=== PATIENT | female | born 1950 | race Caucasian/White ===

== ENCOUNTER 2022-11-03 07:00 | Outpatient (CLI) | payer MEDICARE, OTHER | END 2022-11-03 23:59 | disposition home or self-care (01) | LOC: LAB.S 07:00 | PROVIDERS: ATTEND Physician Assistant | DX: R30.0 Dysuria (principal) | CPT/HCPCS: 87086 ==

== ENCOUNTER 2022-12-14 06:57 | Outpatient (CLI) | payer MEDICARE, OTHER ==
--- NOTE | 2022-12-14 10:08 | Ultrasound Report ---
PROCEDURE: Carotid Doppler Complete INDICATIONS: CAROTID BRUIT TECHNIQUE: Color and pulse Doppler interrogation was performed of both carotid systems, with image documentation and velocity measurements. COMPARISON: None. FINDINGS: Right side: Brachial blood pressure: 139/72 mm Hg. Common carotid artery peak systolic velocity: 96 cm/sec. Internal carotid artery peak systolic velocity: 91 cm/sec. Internal carotid artery end diastolic velocity: 31 cm/sec. External carotid artery peak systolic velocity: 78 cm/sec. ICA/CCA peak systolic ratio: 1.0. Richey scale imaging description: Mild calcified plaque. Percent internal carotid artery stenosis: Less than 50% stenosis. Vertebral artery: Flow direction is antegrade. Left side: Brachial blood pressure: 123/70 mm Hg. Common carotid artery peak systolic velocity: 83 cm/sec. Internal carotid artery peak systolic velocity: 105 cm/sec. Internal carotid artery end diastolic velocity: 41 cm/sec. External carotid artery peak systolic velocity: 96 cm/sec. ICA/CCA peak systolic ratio: 1.3. Richey scale imaging description: Moderate calcified plaque. Percent internal carotid artery stenosis: Less than 50% stenosis. Vertebral artery: Flow direction is antegrade. IMPRESSION: 1. Right ICA: Less than 50% stenosis. 2. Left ICA: Less than 50% stenosis. 3. Antegrade flow in the bilateral vertebral arteries. The estimate of stenosis included in the report of the imaging study was calculated using the NASCET method Reviewed by: Mark Pierson MD on 12/14/2022 10:07 AM [facility] Approved by: Mark Pierson MD on 12/14/2022 10:07 AM [facility] Station ID: [id number]
== END 2022-12-14 06:58 | disposition home or self-care (01) ==
LOC: DI 06:57
PROVIDERS: ATTEND Nurse Practitioner Family
DX: R09.89 Other specified symptoms and signs involving the circulatory and respiratory systems (principal)
CPT/HCPCS: 93880

== ENCOUNTER 2023-08-29 00:36 | Outpatient (CLI) | payer MEDICARE, OTHER | END 2023-08-29 00:37 | disposition critical access hospital (66) | LOC: EMS 00:36 | DX: R10.31 Right lower quadrant pain (principal) | CPT/HCPCS: A0425; A0427 ==

== ENCOUNTER 2023-08-29 01:13 | Emergency (ER) | payer MEDICARE, OTHER ==
--- NOTE | 2023-08-29 01:34 | ED Physician Documentation ---
PD HPI ABD PAIN - Stated complaint Stated Complaint: R FLANK PX - Chief complaint Chief Complaint: Abd Pain - History obtained from History obtained from: Patient - Additional information Additional information: HPI from patient. Patient complains of sudden onset of right flank pain with nausea but no vomiting, onset approximately 4 PM this evening while at home making dinner. The pain waxes and wanes without apparent exacerbating/ameliorating factors. However, she did have resolution of the pain after she was given IV morphine sulfate by the EMS en route to the ED. Patient says her symptoms are very similar to previous episodes of renal colic. She has not had renal colic in approximately 4 years. Denies fever, denies dysuria. Pain does not radiate. Review of Systems Constitutional: denies: Fever, Chills, Sweats Cardiac: reports: Reviewed and negative Respiratory: reports: Reviewed and negative GI: reports: Nausea. denies: Abdominal Pain (right flank, but not abdominal pain per se), Abdominal Swelling, Vomiting, Constipation, Diarrhea : denies: Dysuria, Hematuria PD PAST MEDICAL HISTORY - Past Medical History Past Medical History: Yes Cardiovascular: Hypertension, High cholesterol - Past Surgical History Past Surgical History: Yes - Present Medications Home Medications: Ambulatory Orders Medication Instructions Recorded Confirmed Ondansetron Odt [Zofran Odt] 4 mg TL Q6H PRN #14 tablet 08/29/23 oxyCODONE [Roxicodone] 5 - 10 mg PO Q6H PRN #14 tablet 08/29/23 - Allergies Allergies/Adverse Reactions: Allergies Allergy/AdvReac Type Severity Reaction Status Date / Time No Known Drug Allergies Allergy Verified 08/29/23 01:21 - Social History Does the pt smoke?: No Smoking Status: Never smoker Does the pt drink ETOH?: No Does the pt have substance abuse?: No - Immunizations Immunizations are current?: Yes - POLST Patient has POLST: No PD ED PE NORMAL - Vitals Vital signs reviewed: Yes - General General: Alert and oriented X 3, No acute distress, Well developed/nourished - Cardiac Cardiac: RRR, No murmur - Respiratory Respiratory: No respiratory distress, Clear bilaterally - Abdomen Abdomen: Soft, Non tender - Back Back: No CVA TTP - Derm Derm: No rash Results - Vitals Vitals: Oxygen O2 Source Room air - Labs Labs: Microbiology 08/29/23 02:03 Urine Culture - Final Urine,Clean Catch 10-50,000 COLONIES/ML Polymicrobial growth including potential pathogens. This is suggestive of skin or other contamination. Laboratory Tests 08/29/23 08/29/23 08/29/23 02:03 02:35 02:35 WBC 7.2 RBC 4.14 L Hgb 11.7 L Hct 37.1 MCV 89.6 MCH 28.3 MCHC 31.5 L RDW 13.5 Plt Count 204 MPV 10.3 Neut # (Auto) 3.8 Lymph # (Auto) 2.4 [place] # (Auto) 0.5 Eos # (Auto) 0.4 Baso # (Auto) 0.1 Absolute Nucleated RBC 0.00 Nucleated RBC % 0.0 Sodium 142 Potassium 4.1 Chloride 109 Carbon Dioxide 27 Anion Gap 6.0 BUN 14 Creatinine 0.7 Estimated GFR (MDRD) 82 L Glucose 97 Calcium 8.7 Total Bilirubin 0.5 AST 16 ALT 14 Alkaline Phosphatase 46 Total Protein 6.2 L Albumin 4.3 Globulin 1.9 L Albumin/Globulin Ratio 2.3 H Lipase 321 H Urine Color COLORLESS Urine Clarity CLEAR Urine pH 6.0 Ur Specific [place] <=1.005 Urine Protein NEGATIVE Urine Glucose (UA) NEGATIVE Urine Ketones NEGATIVE Urine Occult Blood NEGATIVE Urine Nitrite NEGATIVE Urine Bilirubin NEGATIVE Urine Urobilinogen 0.2 (NORMAL) Ur Leukocyte Esterase SMALL H Urine RBC 0-5 Urine WBC 6-10 H Ur Squamous Epith Cells NONE SEEN Urine Bacteria Rare Ur Microscopic Review INDICATED Urine Culture Comments INDICATED - Rads (name of study) CT A/P Relevant Findings:: Prelim report reviewed, EMP independent interpretation of test (I reviewed these images and my interpretation is bilateral renal calculi but no evidence of obstructing ureteral calculi. No hydro ureter nor hydronephrosis on either side. Large gallstone noted without gallbladder dilatation.), See rad report PD Medical Decision Making - ED course Complexity details: reviewed results, re-evaluated patient, considered differential, d/w patient ED course: Patient presents with right flank pain that she says is quite similar to previous episodes of renal colic that she has had in the past. However, there is no evidence of obstructing renal calculus on either side. Incidental note is made of multiple intrarenal stones bilaterally, more so on the left. CT does show a solitary though a large gallstone which is a potential etiology of her right upper quadrant pain. Her LFTs are unremarkable. An elevated lipase is noted (321). Patient is in NAD on initial evaluation as well as on reevaluation prior to discharge. Results of fab's tests are discussed with the patient. She declines analgesics but agrees with take-home percocet (and ondansetron) to have on-hand should symptoms reoccur; I am also electronically submitted prescriptions for these medications to [facility] in [place]. Return precautions are reviewed. I advised her to follow-up with a general surgeon to discuss the large gallstone and options for treatment. I suspect fab's symptoms were due to biliary colic. Pancreatitis seems unlikely given the location (right flankpain without anterior/midline pain) and the resolution of symptoms with small dose of morphine which has most certainly worn off by the time of reevaluation prior to d/c. Renal colic seems unlikely given no ureteral calculi nor hydro/ureteronephrosis. I am prescribing a short course of short-acting opioid pain medication for this patient. 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 I have discussed that the opioids are for short term therapy only, and will not be refilled from the ED. Departure - Departure Disposition: 01 Home, Self Care Clinical Impression: Flank pain Condition: Good Instructions: ED Flank Pain Uncertain Cause, ED Gallstone W Biliary Colic Follow-Up: PARVIZ MARQUEZ [Primary Care Provider] - Prescriptions: oxyCODONE [Roxicodone] 5 - 10 mg PO Q6H PRN #14 tablet PRN Reason: Pain >8 Ondansetron Odt [Zofran Odt] 4 mg TL Q6H PRN #14 tablet PRN Reason: Nausea / Vomiting Comments: Although the CT scan shows stones lodged within both the right and left kidney, none of them are in position to cause nor explain any of the pain you had tonight. Kidney stones do not cause symptoms until and unless they become lodged in the ureter (the conduit from the kidney to the bladder), and at this time there is no evidence of any stone stuck in either ureter. There is a solitary but very large gallstone in your gallbladder; as we discussed, I suspect this might have been the cause of your symptoms tonight. Your blood tests were mostly unremarkable and reassuring. Your lipase (pancreatic enzyme) was elevated; this is sometimes an indication of pancreatic inflammation (pancreatitis), but the radiologist specified in their reading of the CT scan that the pancreas is normal in appearance (no evidence of inflammation). Thus, I suspect this mildly elevated pancreatic enzyme test is incidental and not a concerning finding. Nonetheless, mention it to your primary care provider when you follow-up; they might recommend having this test repeated to make sure it is not staying elevated nor getting higher. I have electronically submitted prescriptions for ondansetron (anti-nausea and) and oxycodone (opiate/narcotic pain medication) to the [facility] in [place]. I am prescribing a short course of narcotic pain medication for you. These are potentially dangerous and addictive medications that should be used carefully. These medications may constipate you. Take an [id number] stool softener (docusate) twice daily with plenty of water while taking these medications. If you go 24 hours without a bowel movement, take [id number]-[id number] miralax, per package instructions. Do not drink or drive while taking these medications. If you received narcotic or sedating medications while in the emergency department, do not drive for 24 hours. Store this medication in a safe, secure place and out of reach of children. It is a violation of federal law to give or sell this medication to another person or to use in a manner other than prescribed. The ED will not refill narcotic prescriptions, including prescriptions lost or stolen. To dispose of unwanted medications: 1. [facility] [address] in [place] has a medication drop box. They accept prescription medications (in pill form) Sunday through Sunday 9:00 a.m. to 5:00 p.m. 2. [facility] [employer] accepts prescription medications (in pill form only) for disposal year round. Call for more information. 3. Contact the [facility] for the next [facility] sponsored prescription drug collection event. , [phone], or [phone]; Forms: PCP List Discharge Date/Time: 08/29/23 06:54
[2023-08-29 02:42] LABS: BILIRUBIN,URINE NEGATIVE (NEGATIVE); GLUCOSE, URINE (UA) NEGATIVE (NEGATIVE); KETONES,URINE (UA) NEGATIVE (NEGATIVE); LEUKOCYTE ESTERASE, URINE SMALL (NEGATIVE); NITRITE,URINE NEGATIVE (NEGATIVE); OCCULT BLOOD,URINE NEGATIVE (NEGATIVE); PROTEIN,URINE NEGATIVE (NEGATIVE); UROBILINOGEN,URINE 0.2 (NORMAL) E.U./dL (NORMAL)
[2023-08-29 02:48] LABS: BASOPHILS # (AUTO) 0.1 10^3/uL (0.0-0.1); BASOPHILS % (AUTO) 0.8 %; EOSINOPHILS # (AUTO) 0.4 10^3/uL (0.0-0.7); EOSINOPHILS % (AUTO) 5.5 %; HCT - HEMATOCRIT 37.1 % (37.0-47.0); HGB - HEMOGLOBIN 11.7 g/dL (12.0-16.0); LYMPHOCYTES # (AUTO) 2.4 10^3/uL (1.5-3.5); LYMPHOCYTES % (AUTO) 33.7 %; MEAN CORPUSCULAR HEMOGLOBIN 28.3 pg (27.0-31.0); MEAN CORPUSCULAR HGB CONC 31.5 g/dL (32.0-36.0); MEAN CORPUSCULAR VOLUME 89.6 fL (81.0-99.0); MEAN PLATELET VOLUME 10.3 fL (7.9-10.8); MONOCYTES # (AUTO) 0.5 10^3/uL (0.0-1.0); MONOCYTES % (AUTO) 6.8 %; NEUTROPHILS # (AUTO) 3.8 10^3/uL (1.5-6.6); NEUTROPHILS % (AUTO) 52.9 %; PLT - PLATELET COUNT 204 10^3/uL (130-450); RED BLOOD COUNT 4.14 10^6/uL (4.20-5.40); RED CELL DISTRIBUTION WIDTH 13.5 % (12.0-15.0); WHITE BLOOD COUNT 7.2 x10^3/uL (4.8-10.8)
[2023-08-29 03:01] LABS: BACTERIA,URINE Rare /HPF (None Seen); CLARITY,URINE CLEAR (CLEAR); RBC,URINE 0-5 /HPF (0-5); SQUAMOUS EPITHELIAL CELL,UR NONE SEEN (<= Few)
[2023-08-29 03:19] LABS: ALBUMIN 4.3 g/dL (3.2-5.5); ALBUMIN/GLOBULIN RATIO 2.3 (1.0-2.2); BILIRUBIN,TOTAL 0.5 mg/dL (0.2-1.0); CALCIUM 8.7 mg/dL (8.5-10.3); CREATININE 0.7 mg/dL (0.6-1.3); POTASSIUM 4.1 mmol/L (3.5-4.5); TOTAL PROTEIN 6.2 g/dL (6.4-8.9)
[2023-08-29] MEDS ORDERED: ONDANSETRON ODT 4 MG Prepack 2 TL PRN (04:07)
[2023-08-29] MEDS ORDERED: oxyCODONE/ACET 5/325 Prepack 4 PO STA (04:07)
[2023-08-29 04:33] VITALS: BP 142/68; O2SAT 98
--- NOTE | 2023-08-29 08:22 | CT Report ---
PROCEDURE: ABDOMEN/PELVIS WO INDICATIONS: right flank pain TECHNIQUE: A CT scan of the abdomen and pelvis was performed without the use of intravenous contrast. Images we re recorded and evaluated at appropriate window settings. Reformats: coronal and sagittal. For radiat ion dose reduction, the following was used: automated exposure control, adjustment of mA and/or kV ac cording to patient size. COMPARISON: None. FINDINGS: Image quality: Excellent. Lung bases and heart: Unremarkable. Liver: No solid mass. Gallbladder and biliary tree: Cholelithiasis without wall thickening. No biliary dilation. Spleen: No splenomegaly. Pancreas: No pancreatic ductal dilation. Adrenals: No adrenal nodule. Kidneys and ureters: No hydronephrosis. No renal cystic lesion which requires follow up. No solid mas s. Small burden of bilateral nonobstructing nephrolithiasis, largest measuring 1 cm on the left (779 [address] unit). Bowel and peritoneum: No bowel distension. No pathologic free fluid. Diverticulosis without evidence of diverticulitis. Lymph nodes: No central or retroperitoneal adenopathy. Vessels: No infrarenal aortic aneurysm. PELVIS Reproductive organs: Unremarkable. Bladder: No wall thickness, accounting for underdistention. Pelvic lymph nodes: No pelvic adenopathy by size criteria. Bones: No aggressive osseous abnormality. Other: Small umbilical hernia containing fat. IMPRESSION: No hydronephrosis or obstructing renal stone. Small burden of bilateral nonobstructing nephrolithiasi s. Colonic diverticulosis without evidence of diverticulitis. Cholelithiasis without evidence of acute cholecystitis. Findings are concordant with preliminary interpretation provided by [facility]. Reviewed by: Michele Daugherty on 08/29/2023 8:21 AM PDT Approved by: Michele Daugherty on 08/29/2023 8:21 AM PDT Station ID: [id number]
== END 2023-08-29 06:54 | disposition home or self-care (01) ==
LOC: EDUNIT# → ED 01:13
DX: R10.11 Right upper quadrant pain (principal); N20.0 Calculus of kidney; K80.20 Calculus of gallbladder without cholecystitis without obstruction; R74.8 Abnormal levels of other serum enzymes
CPT/HCPCS: 36415; 80053; 81001; 81003; 83690; 85025; 87086; 99284

== ENCOUNTER 2024-01-24 09:38 | Emergency (ER) | payer MEDICARE, OTHER ==
[2024-01-24 10:05] LABS: BASOPHILS # (AUTO) 0.1 10^3/uL (0.0-0.1); BASOPHILS % (AUTO) 0.6 %; EOSINOPHILS # (AUTO) 0.5 10^3/uL (0.0-0.7); EOSINOPHILS % (AUTO) 4.4 %; HCT - HEMATOCRIT 40.9 % (37.0-47.0); HGB - HEMOGLOBIN 12.5 g/dL (12.0-16.0); LYMPHOCYTES # (AUTO) 1.4 10^3/uL (1.5-3.5); LYMPHOCYTES % (AUTO) 12.5 %; MEAN CORPUSCULAR HEMOGLOBIN 27.1 pg (27.0-31.0); MEAN CORPUSCULAR HGB CONC 30.6 g/dL (32.0-36.0); MEAN CORPUSCULAR VOLUME 88.7 fL (81.0-99.0); MEAN PLATELET VOLUME 10.1 fL (7.9-10.8); MONOCYTES # (AUTO) 0.6 10^3/uL (0.0-1.0); MONOCYTES % (AUTO) 5.8 %; NEUTROPHILS # (AUTO) 8.3 10^3/uL (1.5-6.6); NEUTROPHILS % (AUTO) 76.3 %; PLT - PLATELET COUNT 203 10^3/uL (130-450); RED BLOOD COUNT 4.61 10^6/uL (4.20-5.40); RED CELL DISTRIBUTION WIDTH 13.4 % (12.0-15.0); WHITE BLOOD COUNT 10.8 x10^3/uL (4.8-10.8)
[2024-01-24 10:13] LABS: BILIRUBIN,URINE NEGATIVE (NEGATIVE); CLARITY,URINE HAZY (CLEAR); GLUCOSE, URINE (UA) NEGATIVE (NEGATIVE); KETONES,URINE (UA) NEGATIVE (NEGATIVE); LEUKOCYTE ESTERASE, URINE MODERATE (NEGATIVE); NITRITE,URINE NEGATIVE (NEGATIVE); OCCULT BLOOD,URINE SMALL (NEGATIVE); PROTEIN,URINE NEGATIVE (NEGATIVE); UROBILINOGEN,URINE 0.2 (NORMAL) E.U./dL (NORMAL)
[2024-01-24 10:19] LABS: BACTERIA,URINE Few /HPF (None Seen); RBC,URINE 0-5 /HPF (0-5); SQUAMOUS EPITHELIAL CELL,UR RARE Squamous (<= Few)
[2024-01-24 10:20] LABS: ALBUMIN 4.5 g/dL (3.2-5.5); ALBUMIN/GLOBULIN RATIO 1.9 (1.0-2.2); BILIRUBIN,TOTAL 0.6 mg/dL (0.2-1.0); CALCIUM 9.7 mg/dL (8.5-10.3); CREATININE 0.7 mg/dL (0.6-1.3); POTASSIUM 4.1 mmol/L (3.5-4.5); TOTAL PROTEIN 6.9 g/dL (6.4-8.9)
--- NOTE | 2024-01-24 11:18 | ED Physician Documentation ---
PD HPI ABD PAIN - Stated complaint Stated Complaint: ABD CRAMPS - Chief complaint Chief Complaint: Abd Pain - History obtained from History obtained from: Patient - Additional information Additional information: For about a week she has had pelvic cramping. It was worse last night. She has had normal bowel movements although she says the sensation is like she is going to have diarrhea although she has not. Has not had any blood in the stool. There is no associated urinary complaints. No fever. She has known diverticula from a CT done last year here as well as a colonoscopy done last year. She is status post remote hysterectomy and cholecystectomy. PD PAST MEDICAL HISTORY - Past Medical History Past Medical History: Yes Cardiovascular: Hypertension, High cholesterol GI: Cholelithiasis - Past Surgical History Past Surgical History: Yes General: Cholecystectomy - Present Medications Home Medications: Ambulatory Orders Medication Instructions Recorded Confirmed Ondansetron Odt [Zofran Odt] 4 mg TL Q6H PRN #14 tablet 08/29/23 oxyCODONE [Roxicodone] 5 - 10 mg PO Q6H PRN #14 tablet 08/29/23 Amox/Clav 875/125 [Augmentin] 1 each PO TID #21 tablet 01/24/24 - Allergies Allergies/Adverse Reactions: Allergies Allergy/AdvReac Type Severity Reaction Status Date / Time Sulfa (Sulfonamide Allergy Hives Verified 01/24/24 09:52 Antibiotics) - Social History Does the pt smoke?: No Smoking Status: Never smoker Does the pt drink ETOH?: No Does the pt have substance abuse?: No - Immunizations Immunizations are current?: Yes - POLST Patient has POLST: No PD ED PE NORMAL - Vitals Vital signs reviewed: Yes - General General: Alert and oriented X 3, No acute distress - Abdomen Abdomen: Normal bowel sounds, Soft, Non tender - Neuro Neuro: Alert and oriented X 3, Normal speech Results - Vitals Vitals: Vital Signs - 24 hr 01/24/24 09:49 Temperature 36.4 C L Heart Rate 86 Respiratory 20 Rate Blood Pressure 169/84 H O2 Saturation 100 Oxygen O2 Source Room air - Labs Labs: Laboratory Tests 01/24/24 01/24/24 01/24/24 09:54 10:01 10:01 WBC 10.8 RBC 4.61 Hgb 12.5 Hct 40.9 MCV 88.7 MCH 27.1 MCHC 30.6 L RDW 13.4 Plt Count 203 MPV 10.1 Neut # (Auto) 8.3 H Lymph # (Auto) 1.4 L [place] # (Auto) 0.6 Eos # (Auto) 0.5 Baso # (Auto) 0.1 Absolute Nucleated RBC 0.00 Nucleated RBC % 0.0 Sodium 141 Potassium 4.1 Chloride 104 Carbon Dioxide 30 Anion Gap 7.0 BUN 12 Creatinine 0.7 Estimated GFR (MDRD) 82 L Glucose 101 Calcium 9.7 Total Bilirubin 0.6 AST 16 ALT 14 Alkaline Phosphatase 59 Total Protein 6.9 Albumin 4.5 Globulin 2.4 Albumin/Globulin Ratio 1.9 Lipase 41 Urine Color YELLOW Urine Clarity HAZY Urine pH 7.0 Ur Specific [place] <=1.005 Urine Protein NEGATIVE Urine Glucose (UA) NEGATIVE Urine Ketones NEGATIVE Urine Occult Blood SMALL H Urine Nitrite NEGATIVE Urine Bilirubin NEGATIVE Urine Urobilinogen 0.2 (NORMAL) Ur Leukocyte Esterase MODERATE H Urine RBC 0-5 Urine WBC 11-25 H Ur Squamous Epith Cells RARE Squamous Urine Bacteria Few Ur Microscopic Review INDICATED Urine Culture Comments INDICATED PD Medical Decision Making - ED course ED course: Clinically this is consistent with diverticulitis and it was discussed with her. Her CBC and CMP are unremarkable. Urine does show small signs of infection but she really does not have any urinary complaints. Used shared decision- making and discussed the utility of CT versus trial at management of diverticulitis and she chose the latter with close return precautions. Departure - Departure Disposition: 01 Home, Self Care Clinical Impression: Diverticulitis of gastrointestinal tract Condition: Good Record reviewed to determine appropriate education?: Yes Instructions: Diet Low Residue, Diet Clear Liquid Dc, ED Diverticulitis Prescriptions: Amox/Clav 875/125 [Augmentin] 1 each PO TID #21 tablet Comments: I sent your prescriptions electronically to the [facility] in [place]. As discussed this does sound like diverticulitis as you presumed. Given the lack of tenderness and normal blood work I think it is fine to treated presumptively but would like you to return at the end of the weekend if not improving, sooner for new or worsening symptoms such as significant blood in the stool or high fever. For the next 24 hours do a clear liquid diet, see attached instructions, and then for another 48 hours the low residue diet. Follow-up with your doctor in a bout a week for recheck. 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 Forms: PCP List
[2024-01-24 11:35] VITALS: BP 136/78; O2SAT 98
== END 2024-01-24 11:30 | disposition home or self-care (01) ==
LOC: ED 09:38
DX: K57.32 Diverticulitis of large intestine without perforation or abscess without bleeding (principal); I10 Essential (primary) hypertension; E78.00 Pure hypercholesterolemia, unspecified; Z87.19 Personal history of other diseases of the digestive system; Z90.49 Acquired absence of other specified parts of digestive tract; Z90.710 Acquired absence of both cervix and uterus
CPT/HCPCS: 36415; 80053; 81001; 81003; 83690; 85025; 87077; 87086; 87181; 99283